=== PATIENT | female | born 1950 | race Caucasian/White ===

== ENCOUNTER 2019-10-24 | Emergency (ER) | payer MEDICARE ==
[~2019-10-24] MED LIST: ATROVENT H17 MCG/ACT IN; DOXYCYCL HYC100 MG PO; DULOXETINE HCL30 MG PO; LEVOTHYROXIN125 MC1 PO; LORAZEPAM0.5 MG PO; LOVASTATIN20 M1 PO; METFORMIN HCL500 M1 PO; RANITIDINE HCL150 MG PO; TRAZODONE50 MG PO
[2019-10-24] MEDS ORDERED: MOTRIN400 MG PO (15:37)
[2019-10-24] MEDS ORDERED: BENADRYL 25MG C25 MG PO (15:38)
[2019-10-24 15:57] LABS: HEMATOCRIT 38.5 % (37.0-47.0); HEMOGLOBIN 12.8 g/dl (12.0-16.0); IMMATURE GRANULOCYTES 0.2 % (0.0-5.0); MEAN CELL VOLUME 97.5 fL CALC (80.0-100.0); MEAN CORPUSCULAR HGB 32.4 pG CALC (26.0-32.0); MEAN CORPUSCULAR HGB CONC 33.2 g/L CALC (32.0-36.0); NEUT# 3.41 thou/uL (2.00-7.15); RED BLOOD COUNT 3.95 mill/uL (4.20-5.60); RED CELL DISTRI WIDTH 11.4 % (11.5-15.5)
[2019-10-24 16:34] LABS: ALBUMIN 4.3 g/dL (3.2-5.0); ALKALINE PHOSPHATASE 70 u/l (38-126); ANION GAP 12 (6-22 (CALC)); BILIRUBIN, TOTAL 0.3 mg/dL (0.0-1.4); BUN 13 mg/dL (8-23); BUN/CREATININE RATIO 23 (12-20 (CALC)); CARBON DIOXIDE 27 mmol/l (22-30); CHLORIDE 103 mmol/l (95-108); CREATININE 0.6 mg/dL (0.5-1.0); GFR > 60 ML/MIN (>=60 (CALC)); GFR FOR AFR.AMER. > 60 ML/MIN (>=60 (CALC)); LIPASE 122 u/l (23-300); POTASSIUM 4.3 mmol/l (3.5-5.1); SGOT/AST 26 u/l (9-36); SODIUM 137 mmol/l (137-146); TOTAL PROTEIN 7.3 g/dL (6.3-8.2)
[2019-10-24 17:48] LABS: URINE BILIRUBIN - DIPSTICK NEGATIVE (NEGATIVE); URINE BLOOD DIPSTICK NEGATIVE (NEGATIVE); URINE COLOR YELLOW; URINE GLUCOSE - DIPSTICK NEGATIVE (NEGATIVE); URINE KETONE NEGATIVE (NEGATIVE); URINE LEUK ESTERASE NEGATIVE (NEGATIVE); URINE NITRITE - DIPSTICK NEGATIVE (Negative); URINE PROTEIN - DIPSTICK NEGATIVE (NEG-TRACE); URINE SPECIFIC GRAVITY 1.015; URINE UROBILINOGEN - DIPSTICK 0.2 E.U./dL (0.2)
[2019-10-24] MEDS ORDERED: CYCLOBENZAPR5 MG PO (18:04)
== END 2019-10-24 18:15 | disposition home or self-care (01) ==
PROVIDERS: Family Medicine
DX: M54.5 Low back pain (principal); E11.9 Type 2 diabetes mellitus without complications; F17.210 Nicotine dependence, cigarettes, uncomplicated; Z79.84 Long term (current) use of oral hypoglycemic drugs

== ENCOUNTER 2019-12-16 | Emergency (ER) | payer MEDICARE ==
[~2019-12-16] MED LIST changes: +BENADRYL 25MG C25 MG PO; +CYCLOBENZAPR5 MG PO; +MOTRIN400 MG PO
[2019-12-16] MEDS ORDERED: CLINDAMYCIN300 M1 PO (16:01)
[2019-12-16 16:39] LABS: URINE BILIRUBIN - DIPSTICK NEGATIVE (NEGATIVE); URINE BLOOD DIPSTICK TRACE-INTACT (NEGATIVE); URINE COLOR YELLOW; URINE GLUCOSE - DIPSTICK NEGATIVE (NEGATIVE); URINE KETONE TRACE mg/dL (NEGATIVE); URINE LEUK ESTERASE NEGATIVE (NEGATIVE); URINE NITRITE - DIPSTICK NEGATIVE (Negative); URINE PH 7.5 (4.5-8.0); URINE PROTEIN - DIPSTICK TRACE mg/dL (NEG-TRACE); URINE UROBILINOGEN - DIPSTICK 0.2 E.U./dL (0.2)
== END 2019-12-16 17:35 | disposition home or self-care (01) ==
PROVIDERS: Emergency Medicine
DX: R35.0 Frequency of micturition (principal); E11.9 Type 2 diabetes mellitus without complications; Z79.84 Long term (current) use of oral hypoglycemic drugs; F17.210 Nicotine dependence, cigarettes, uncomplicated

== ENCOUNTER 2021-02-08 13:04 | Emergency (ER) | payer MEDICARE ==
[~2021-02-08 13:04] MED LIST changes: +CLINDAMYCIN300 M1 PO
[2021-02-08] MEDS ORDERED: CYMBALTA60 MG PO (13:58)
[2021-02-08] MEDS ORDERED: BL IBUPROFEN200 MG PO (14:00)
[2021-02-08 14:20] LABS: URINE BILIRUBIN - DIPSTICK NEGATIVE (NEGATIVE); URINE BLOOD DIPSTICK SMALL (NEGATIVE); URINE COLOR YELLOW; URINE GLUCOSE - DIPSTICK NEGATIVE (NEGATIVE); URINE KETONE TRACE mg/dL (NEGATIVE); URINE LEUK ESTERASE NEGATIVE (NEGATIVE); URINE PH 5.5 (4.5-8.0); URINE PROTEIN - DIPSTICK TRACE mg/dL (NEG-TRACE); URINE SPECIFIC GRAVITY >=1.030; URINE UROBILINOGEN - DIPSTICK 0.2 E.U./dL (0.2)
[2021-02-08 14:20] LABS: HEMATOCRIT 37.6 % (37.0-47.0); HEMOGLOBIN 12.4 g/dl (12.0-16.0); IMMATURE GRANULOCYTES 0.3 % (0.0-5.0); MEAN CELL VOLUME 95.7 fL CALC (80.0-100.0); MEAN CORPUSCULAR HGB 31.6 pG CALC (26.0-32.0); RED BLOOD COUNT 3.93 mill/uL (4.20-5.60); RED CELL DISTRI WIDTH 11.3 % (11.5-15.5)
[2021-02-08 14:21] LABS: URINE EPITHELIAL CELLS FEW EPI/hpf (0-FEW); URINE NITRITE - DIPSTICK NEGATIVE (Negative)
[2021-02-08 14:32] LABS: ALBUMIN 4.3 g/dL (3.2-5.0); ALKALINE PHOSPHATASE 104 u/l (38-126); AMYLASE 66 u/l (30-110); ANION GAP 11 (6-22 (CALC)); BILIRUBIN, TOTAL 0.5 mg/dL (0.0-1.4); BUN 16 mg/dL (8-23); BUN/CREATININE RATIO 23 (12-20 (CALC)); CARBON DIOXIDE 26 mmol/l (22-30); CHLORIDE 100 mmol/l (95-108); CREATININE 0.7 mg/dL (0.5-1.0); GFR > 60 ML/MIN (>=60 (CALC)); GFR FOR AFR.AMER. > 60 ML/MIN (>=60 (CALC)); LIPASE 86 u/l (23-300); POTASSIUM 3.7 mmol/l (3.5-5.1); SGOT/AST 25 u/l (9-36); SODIUM 133 mmol/l (137-146); TOTAL PROTEIN 7.4 g/dL (6.3-8.2)
[2021-02-08] MEDS ORDERED: ZOFRAN4 MG/TAB PO (17:41)
[2021-02-08] MEDS ORDERED: CIPROFLOXACN500 MG PO (17:41)
[2021-02-08] MEDS ORDERED: METRONIDAZOL500 MG PO (17:41)
[2021-02-08 18:04] VITALS: BP 146/71
== END 2021-02-08 18:31 | disposition home or self-care (01) ==
LOC: ED 13:04
PROVIDERS: Emergency Medicine
DX: K62.89 Other specified diseases of anus and rectum (principal); E11.9 Type 2 diabetes mellitus without complications; E78.00 Pure hypercholesterolemia, unspecified; F41.9 Anxiety disorder, unspecified; F17.200 Nicotine dependence, unspecified, uncomplicated; Z79.84 Long term (current) use of oral hypoglycemic drugs; Z20.822 Contact with and (suspected) exposure to COVID-19
CPT/HCPCS: Q9967

== ENCOUNTER 2021-12-18 20:01 | Observation (INO) | payer MEDICARE ==
[2021-12-18] VITALS (8 sets, daily range): BP systolic 120–158; BP diastolic 66–93
[~2021-12-18] VITALS: Ht 154.9 cm; Wt 73.0 kg
[~2021-12-18 20:01] MED LIST changes: +CIPROFLOXACN500 MG PO; +CYMBALTA60 MG PO; +LEVOTHYROXIN112 MC1 PO; -LEVOTHYROXIN125 MC1 PO; +METRONIDAZOL500 MG PO; +MOTRIN800 MG PO; +TRAZODONE HYDR150 MG PO; -TRAZODONE50 MG PO; +ZOFRAN4 MG/TAB PO
--- NOTE | 2021-12-18 20:20 | NUR ---
PT ESCORTED TO ROOM 15 VIA WHEELCHAIR FOR EVAL OF CP
[2021-12-18 20:26] LABS: HEMATOCRIT 38.7 % (37.0-47.0); HEMOGLOBIN 12.8 g/dl (12.0-16.0); IMMATURE GRANULOCYTES 0.2 % (0.0-5.0); MEAN CELL VOLUME 95.8 fL CALC (80.0-100.0); MEAN CORPUSCULAR HGB 31.7 pG CALC (26.0-32.0); MEAN CORPUSCULAR HGB CONC 33.1 g/dL CAL (32.0-36.0); NEUT# 3.23 thou/uL (2.00-7.15); RED BLOOD COUNT 4.04 mill/uL (4.20-5.60); RED CELL DISTRI WIDTH 11.7 % (11.5-15.5)
[2021-12-18 20:43] LABS: ALBUMIN 4.2 g/dL (3.2-5.0); ALKALINE PHOSPHATASE 111 u/l (38-126); AMYLASE 69 u/l (30-110); ANION GAP 13 (6-22 (CALC)); BILIRUBIN, TOTAL 0.3 mg/dL (0.0-1.4); BUN 13 mg/dL (8-23); BUN/CREATININE RATIO 16 (12-20 (CALC)); CHLORIDE 104 mmol/l (95-108); CREATININE 0.8 mg/dL (0.5-1.0); GFR > 60 ML/MIN (>=60 (CALC)); GFR FOR AFR.AMER. > 60 ML/MIN (>=60 (CALC)); LIPASE 76 u/l (23-300); POTASSIUM 3.9 mmol/l (3.5-5.1); SGOT/AST 23 u/l (9-36); SODIUM 137 mmol/l (137-146); TOTAL PROTEIN 7.6 g/dL (6.3-8.2)
[2021-12-18 20:44] LABS: ACT PARTIAL THROMBO TIME 24.3 SECONDS (20.0-32.5); INTERNATIONAL NORMALIZED RATIO 0.9 RATIO (0.7-1.3); PROTHROMBIN TIME 9.8 SECONDS (9.0-12.5)
[2021-12-18 20:45] LABS: CARBON DIOXIDE 24 mmol/l (22-30)
--- NOTE | 2021-12-18 21:14 | NUR ---
Reassessment of patient completed. No distress noted.
[2021-12-18 21:24] LABS: URINE BILIRUBIN - DIPSTICK NEGATIVE (NEGATIVE); URINE BLOOD DIPSTICK NEGATIVE (NEGATIVE); URINE COLOR YELLOW; URINE GLUCOSE - DIPSTICK NEGATIVE (NEGATIVE); URINE KETONE TRACE mg/dL (NEGATIVE); URINE LEUK ESTERASE NEGATIVE (NEGATIVE); URINE PROTEIN - DIPSTICK TRACE mg/dL (NEG-TRACE); URINE SPECIFIC GRAVITY >=1.030; URINE UROBILINOGEN - DIPSTICK 0.2 E.U./dL (0.2)
[2021-12-18 21:25] LABS: URINE NITRITE - DIPSTICK NEGATIVE (Negative)
--- NOTE | 2021-12-18 22:58 | NUR ---
Reassessment of patient completed. No distress noted.
[2021-12-19] VITALS: BP 131/78
--- NOTE | 2021-12-19 00:27 | NUR ---
REPORT CALLED TO [facility] ON FLOOR PT TRANSPORTED WITHOUT DIFFICUTY
--- NOTE | 2021-12-19 00:32 | NUR ---
71 yr old white female adm medsurg rm 272 per w/c from er. no c/o chest pain. transferred self to bed. oriented to room. fall precautions initiated. supper meal given.
[2021-12-19 00:59] VITALS: BP 158/95
--- NOTE | 2021-12-19 04:00 | NUR ---
telemetry report rec'd per jet [facility] blas hr 53.
[2021-12-19 04:37] VITALS: BP 161/62
[2021-12-19 05:38] LABS: HEMATOCRIT 38.3 % (37.0-47.0); HEMOGLOBIN 12.4 g/dl (12.0-16.0); MEAN CELL VOLUME 96.2 fL CALC (80.0-100.0); MEAN CORPUSCULAR HGB 31.2 pG CALC (26.0-32.0); MEAN CORPUSCULAR HGB CONC 32.4 g/dL CAL (32.0-36.0); RED BLOOD COUNT 3.98 mill/uL (4.20-5.60); RED CELL DISTRI WIDTH 11.7 % (11.5-15.5)
[2021-12-19 05:59] LABS: ANION GAP 9 (6-22 (CALC)); BUN 13 mg/dL (8-23); BUN/CREATININE RATIO 17 (12-20 (CALC)); CALCULATED LDLCHOLESTEROL 159 mg/dL (62-129 (CALC)); CARBON DIOXIDE 27 mmol/l (22-30); CHLORIDE 105 mmol/l (95-108); CHOLESTEROL HDL RATIO 3.9 (<4.4 (CALC)); CREATININE 0.7 mg/dL (0.5-1.0); GFR > 60 ML/MIN (>=60 (CALC)); GFR FOR AFR.AMER. > 60 ML/MIN (>=60 (CALC)); HDL CHOLESTEROL 63 mg/dL (>=40); MAGNESIUM 1.9 mg/dL (1.6-2.3); SODIUM 138 mmol/l (137-146); TOTAL CHOLESTEROL 244 mg/dl (0-199); TOTAL TRIGLYCERIDES 109 mg/dl (30-149); VLDL CHOLESTROL 22 mg/dl (1-41 (CALC))
--- NOTE | 2021-12-19 08:00 | NUR ---
GOT REPORT FROM SEARCH OPTIMIZATION ANALYST NURSE. CHECKED AND ASSESSED PATIENT. AOX4. DENIES ANY CHEST PAIN, SHORTNESS OF BREATH, HEADACHE OR DIZZINESS. PATIENT STATED THAT SHE FEELS MUCH BETTER TODAY THAN YESTERDAY.
[2021-12-19] MEDS ORDERED: CYANOCOBAL1000 MCG/M (08:37)
[2021-12-19] MEDS ORDERED: OMEPRAZOLE DR40 MG PO (09:01)
[2021-12-19 11:13] VITALS: BP 198/63
--- NOTE | 2021-12-19 12:00 | NUR ---
PATIENT IS RESTING IN BED WATCHING TV. PATIENT DENIES ANY DISCOMFORT OR PAIN.
[2021-12-19] MEDS ORDERED: AMLODIPINE BESYL5 MG PO (12:34)
[2021-12-19 13:24] VITALS: BP 115/75
--- NOTE | 2021-12-19 14:23 | NUR ---
Discharge instructions given. Patient verbalizes understanding of same. Discharged in stable condition via Wheelchair to Home with family. All belongings sent with pt.
== END 2021-12-19 14:23 | disposition home or self-care (01) ==
LOC: ED 20:01 → MS2 22:35 → ED 22:44 → ED-I 22:44 → ED 23:53 → MS2 23:54 → ED 23:54 → MS2 12-19 14:23
PROVIDERS: ADMIT Hospitalist; ATTEND Hospitalist
DX: R07.2 Precordial pain (principal); E11.9 Type 2 diabetes mellitus without complications; J44.9 Chronic obstructive pulmonary disease, unspecified; E03.9 Hypothyroidism, unspecified; E78.5 Hyperlipidemia, unspecified; K21.9 Gastro-esophageal reflux disease without esophagitis; F41.9 Anxiety disorder, unspecified; F17.210 Nicotine dependence, cigarettes, uncomplicated; Z79.84 Long term (current) use of oral hypoglycemic drugs; Z87.11 Personal history of peptic ulcer disease; Z20.822 Contact with and (suspected) exposure to COVID-19